=== PATIENT | female | born 1970 | race Caucasian/White ===

== ENCOUNTER 2017-04-18 05:46 | Day surgery (SDC) | payer OTHER ==
[~2017-04-18] VITALS: Ht 149.9 cm; Wt 84.6 kg
[~2017-04-18 05:46] MED LIST: ALBUTEROL SULFAT3 M3 IH; FASTIN30 MG PO; FORADIL AERO0.012 MG IH; GLUCOPHAGE500 MG/TAB PO; LORTAB 5/500 501 TAB PO; PROAIR HFA0.09 MG/AC IH; RT SPIRIVA18 MCG IH; THEO-24 30300 MG/CAP PO; XANAX 0.5MG0.5 MG PO; ZANTAC 150MG T150 MG PO; ZYPREXA2.5 MG PO
[2017-04-18 06:31] VITALS: BP 118/56; PULSE 70; TEMP 97.6
[2017-04-18] MEDS ORDERED: PERCOCET 325 MG1 TA2 PO (09:15)
[2017-04-18] MEDS ORDERED: COLACE 100100 MG/CAP PO (09:15)
[2017-04-18] MEDS ORDERED: MOTRIN 600600 MG/TAB PO (09:15)
[2017-04-18 09:55] VITALS: BP 104/52; PULSE 68; TEMP 97.6
[2017-04-18 10:25] VITALS: BP 107/61; PULSE 61
[2017-04-18 10:40] VITALS: BP 111/88; PULSE 57
[2017-04-18 10:55] VITALS: BP 99/58; PULSE 82
[2017-04-18 11:40] VITALS: BP 103/59; PULSE 59
== END 2017-04-18 12:25 | disposition home or self-care (01) ==
LOC: SDCO 05:46
DX: K80.10 Calculus of gallbladder with chronic cholecystitis without obstruction (principal); E11.9 Type 2 diabetes mellitus without complications; J44.9 Chronic obstructive pulmonary disease, unspecified; Z80.9 Family history of malignant neoplasm, unspecified; Z80.1 Family history of malignant neoplasm of trachea, bronchus and lung; F17.210 Nicotine dependence, cigarettes, uncomplicated
CPT/HCPCS: J0694; J1100; J1170; J2270; J2405; J2550; J2704; J3010; J7030; J7120; Q9967